=== PATIENT | male | born 1955 | race Caucasian/White ===

== ENCOUNTER → 2020-02-02 | Outpatient (CLI) | payer OTHER ==
[2020-02-02 08:37] LABS: African American GFR (CKD) >90 (>60 ml/min/1.73 sqM); Blood Urea Nitrogen 18 mg/dL (9-20); Non-African American GFR(CKD) >90 (>60 ml/min/1.73 sqM)
--- NOTE | 2020-02-02 12:45 | NM ---
EXAMINATION TYPE: NM bone scan whole body DATE OF EXAM: 02/02/2020 COMPARISON: CT same date HISTORY: Prostate cancer Delayed whole-body scanning was performed following the injection of 22.2 mCi Tc 99m MDP. Images acq uired 3 hours post injection. FINDINGS: Soft tissue uptake is normal. No area of abnormal increased or decreased uptake to suggest metastatic disease. Uptake within the feet, wrists, shoulders, costovertebral angles and spine is likely degene rative. IMPRESSION: No evident metastatic disease.
--- NOTE | 2020-02-02 13:03 | CT ---
EXAMINATION TYPE: CT abdomen pelvis w con DATE OF EXAM: 02/02/2020 COMPARISON: 01/14/2014 INDICATION: Prostate cancer DLP: 2339.70 mGycm, Automated exposure control for dose reduction was used. CONTRAST: 100 mL of Isovue 300. Study performed with Oral Contrast TECHNIQUE: Axial images were obtained from above the diaphragm to the pubic rami in the axial plane a t 5 mm thick sections. Reconstructed images are reviewed on the computer in the coronal plane. FINDINGS: Limited CT sections are obtained the lung bases. The lung bases are clear. CT ABDOMEN: There is a periumbilical hernia present. There appears be some inflammatory changes withi n the mesenteric fat. Correlate for incarcerated fat. Liver: Normal Spleen: Normal Pancreas: Normal Adrenal glands: The adrenal glands are normal. Gallbladder: Normal Kidneys: No masses are evident. No hydronephrosis is present. No cysts are present. Delayed images were obtained through the kidneys, which remain unremarkable. Aorta: Vascular calcification is within the aorta. Inferior vena cava: Normal. CT PELVIS: Fat-containing inguinal hernias may be present bilaterally larger on the left. No loops of bowel are involved. Diverticulosis without acute diverticulitis is within the which has a more solid appearance without e xpansion or adjacent inflammatory changes. This could be related to incomplete distention with fecal debris in the anterior. Underlying mass in the mid sigmoid colon however should be considered. There are loops of bowel which are incompletely distended or lack oral contrast limiting their evaluation. Appendix: Normal as visualized. Urinary bladder: Normal. Genitourinary structures: Prostate appears normal Osseous structures: No suspicious lytic or sclerotic lesions. IMPRESSIONS: 1. Mesenteric fat containing periumbilical hernia with some increased inflammatory type change withi n the fat. Correlate for incarcerated fat within the periumbilical hernia. 2. Bilateral inguinal hernias with mesenteric fat. 3. Some mass filling of the mid sigmoid colon is not excluded. Consider additional evaluation. 4. Diverticulosis without acute diverticulitis.
== END | disposition home or self-care (01) ==
LOC: RADCTMAIN 07:32
PROVIDERS: ATTEND Urology
DX: K42.9 Umbilical hernia without obstruction or gangrene (principal); K40.20 Bilateral inguinal hernia, without obstruction or gangrene, not specified as recurrent; K57.90 Diverticulosis of intestine, part unspecified, without perforation or abscess without bleeding; C61 Malignant neoplasm of prostate
CPT/HCPCS: 82565; 84520; 74177; 36415; 78306; A9503; Q9967

== ENCOUNTER → 2020-02-11 | Outpatient (CLI) | payer OTHER ==
[2020-02-11 12:01] LABS: Basophils # (A) 0.1 k/uL (0-0.2); Basophils % (A) 1 %; Eosinophils # (A) 0.2 k/uL (0-0.7); Eosinophils % (A) 4 %; HCT 50.4 % (39.0-53.0); HGB 16.3 gm/dL (13.0-17.5); Lymphocytes # (A) 1.6 k/uL (1.0-4.8); Lymphocytes % (A) 26 %; MCH 30.2 pg (25.0-35.0); MCHC 32.2 g/dL (31.0-37.0); MCV 93.6 fL (80.0-100.0); Mean Platelet Volume 7.4; Monocytes # (A) 0.4 k/uL (0-1.0); Monocytes % (A) 6 %; Neutrophils # (A) 3.9 k/uL (1.3-7.7); Neutrophils % (A) 62 %; Platelet Count 250 k/uL (150-450); RBC 5.39 m/uL (4.30-5.90); RDW 13.3 % (11.5-15.5); WBC 6.3 k/uL (3.8-10.6)
[2020-02-11 12:23] LABS: African American GFR (CKD) >90 (>60 ml/min/1.73 sqM); Anion Gap 8 mmol/L; Blood Urea Nitrogen 16 mg/dL (9-20); Carbon Dioxide 29 mmol/L (22-30); Chloride 104 mmol/L (98-107); Glucose 114 mg/dL (74-99); Non-African American GFR(CKD) >90 (>60 ml/min/1.73 sqM); Potassium 4.4 mmol/L (3.5-5.1); Sodium 141 mmol/L (137-145)
--- NOTE | 2020-02-11 14:40 | XR ---
EXAMINATION TYPE: XR chest 2V DATE OF EXAM: 02/11/2020 CLINICAL HISTORY: Cough. Preoperative. TECHNIQUE: Frontal and lateral views of the chest are obtained. COMPARISON: Chest radiograph 02/18/2015. CT abdomen pelvis 02/02/2020 and 01/14/2014. FINDINGS: The cardiomediastinal silhouette is within normal limits for size. Pulmonary vasculature i s normal. There is redemonstrated left basilar linear opacity at the lingula, similar to prior radiog raph and CT comparisons, representing pericardial fat and atelectasis. There is no new focal air spac e opacity, pleural effusion, or pneumothorax seen. No acute displaced osseous fractures. IMPRESSION: Unchanged radiographic appearance of the chest. No acute cardiopulmonary process.
== END | disposition home or self-care (01) ==
LOC: RADXRMAIN 10:53
PROVIDERS: ATTEND Urology
DX: Z01.818 Encounter for other preprocedural examination (principal); C61 Malignant neoplasm of prostate; R58 Hemorrhage, not elsewhere classified; I10 Essential (primary) hypertension; R05 Cough
CPT/HCPCS: 36415; 71046; 80048; 85025; 93005

== ENCOUNTER 2020-02-18 05:38 | Day surgery (SDC) | payer OTHER ==
--- NOTE | 2020-02-15 07:43 | P.HPIHPCON ---
History of Present Illness H&P Date: 02/18/20 Chief Complaint: prostate cancer Mr Beverly is a 64yo male with hx of valentin 8 (4+4) prostate cancer. We discussed with him the options including surgery and radiation therapy. We discussed the risk and benefits with him of each approach. I discussed with surgery the risk of urinary incontinence and erectile dysfunction, I also discussed with him risk of injury to nearby organs including bowels and rectum and blood vessels. Of note he has hx of ventral hernia, I did discuss with him he is at an increased risk of complication including bowel injury. I also discussed the risk from anesthesia with him. Which included but not limited to blood clots, heart attack, stroke and even . Discuss with him potential of needing additional treatment for his prostate cancer. He understood all the risk and agreed to proceed with a robotic-assisted radical prostatectomy and pelvic lymph node dissection Consent for Procedure: I have explained the operation/procedure to the patient, including the risks, benefits, side effects, alternative therapies (including not receiving the proposed treatment or service), the likelihood of the patient achieving his/her goals, and potential recuperation problems for the procedure/sedation/analgesia, as well as any blood products, if indicated. I also explained to the patient the risks, benefits and side effects of the alternatives, as well as the risks related to not receiving the proposed procedure, care, treatment, or services. - Constitutional Constitutional: Denies chills, Denies fever - Cardiovascular Cardiovascular: Denies chest pain, Denies shortness of breath - Respiratory Respiratory: Denies cough, Denies 7 - Gastrointestinal Gastrointestinal: Denies abdominal pain, Denies diarrhea, Denies nausea, Denies vomiting - Genitourinary (Male) Genitourinary: Denies dysuria, Denies hematuria - Neurological Neurological: Denies numbness, Denies weakness Past Medical History Past Medical History: Pneumonia Additional Past Medical History / Comment(s): DIVERTICULOSIS History of Any Multi-Drug Resistant Organisms: None Reported Past Surgical History: Hernia Repair Past Psychological History: No Psychological Hx Reported Past Alcohol Use History: None Reported Past Drug Use History: None Reported Medications and Allergies Home Medications Medication Instructions Recorded Confirmed Type Albuterol Inhaler (Mhu) [Ventolin 1 - 2 puff INHALATION Q6HR PRN #1 02/18/15 Rx Hfa Inhaler (Mhu)] inhaler Azithromycin [Zithromax] 0 mg PO DIRECTED #6 tab 02/18/15 Rx Ibuprofen [Motrin] 600 mg PO Q8HR PRN #15 tab 02/18/15 Rx predniSONE 50 mg PO DAILY #4 tab 02/18/15 Rx Allergies Allergy/AdvReac Type Severity Reaction Status Date / Time No Known Allergies Allergy Verified 02/18/15 12:17 Surgical - Exam - General well developed, well nourished, no distress - Eyes PERRL, normal ocular movement - Respiratory normal expansion, normal respiratory effort - Abdomen Abdomen: soft, non tender - Psychiatric oriented to time, oriented to person, oriented to place Assessment and Plan Assessment: 64 yo male with hx of valentin 8 prostae cancer -OR for robotic prostatectomy and pelvic lymph node dissection
[2020-02-17 10:18] VITALS: BMI 35.9
[2020-02-18] MEDS ORDERED: LACTATED RINGERS 1,000 ML IV SCH (05:53)
[2020-02-18] MEDS ORDERED: ONDANSETRON 4 MG/2 ML VIAL IVP ONE (05:53)
[2020-02-18] MEDS ORDERED: DEXAMETHASONE SOD PHOSPHATE 10 MG/ML 1 ML VIAL IV ONE (05:53)
[2020-02-18] MEDS ORDERED: HEPARIN SODIUM,PORCINE 5,000 UNIT/ML 1 ML VIAL SQ ONE (06:00)
[2020-02-18] MEDS ORDERED: LIDOCAINE 1% (10MG/ML) FOR IV START INTRADERMA ONE (06:35)
[2020-02-18] MEDS ORDERED: MIDAZOLAM 2 MG/2 ML VIAL IV ONE (06:55)
[2020-02-18 07:01] LABS: INR 0.9 (<1.2); Prothrombin Time 9.6 sec (9.0-12.0)
[2020-02-18] MEDS ORDERED: fentaNYL (PF) 50 MCG/ML 2 ML AMP ONE (07:28)
[2020-02-18] MEDS ORDERED: NEOSTIGMINE 1 MG/ML 10 ML VIAL ONE (07:28)
[2020-02-18] MEDS ORDERED: SUCCINYLCHOLINE CHLORIDE 100 MG/5 ML SYR IV ONE (07:28)
[2020-02-18] MEDS ORDERED: PHENYLEPHRINE-0.9% NACL SYG 1 MG/10 ML SYRINGE ONE (07:28)
[2020-02-18] MEDS ORDERED: PROPOFOL 10 MG/ML 20 ML VIAL IV ONE (07:28)
[2020-02-18] MEDS ORDERED: LIDOCAINE 1% INJ 10MG/ML (20 ML MDV) ONE (07:28)
[2020-02-18] MEDS ORDERED: ROCURONIUM 10 MG/ML (10 ML VIAL) IV ONE (07:28)
[2020-02-18] MEDS ORDERED: GLYCOPYRROLATE 0.2 MG/ML 2 ML VIAL ONE (07:28)
[2020-02-18] MEDS ORDERED: BUPIVACAINE (PF) 0.25% 30 ML VIAL SQ ONE ×2 (08:43→09:54)
--- NOTE | 2020-02-18 10:15 | P.OP ---
Date of Procedure: 02/18/20 Preoperative Diagnosis: prostate cancer Postoperative Diagnosis: prostate cancer, Procedure(s) Performed: Diagnostic laproscopy and lysis of adhesions (>45 minutes ) Implants: none Anesthesia: BOBA Surgeon: Ranjith Borrero Bulk Sealer #1: Luis Barrera Estimated Blood Loss (ml): 25 Condition: stable Disposition: PACU Indications for Procedure: Mr Beverly is a 64yo male with hx of valentin 8 (4+4) prostate cancer. We discussed with him the options including surgery and radiation therapy. We discussed the risk and benefits with him of each approach. I discussed with surgery the risk of urinary incontinence and erectile dysfunction, I also d iscussed with him risk of injury to nearby organs including bowels and rectum and blood vessels. Of note he has hx of ventral hernia, I did discuss with him he is at an increased risk of complication including bowel injury. I also discussed the risk from anesthesia with him. Which included but not limited to blood clots, heart attack, stroke and even . Discuss with him potential of needing additional treatment for his prostate cancer. He understood all the risk and agreed to proceed with a robotic-assisted radical prostatectomy and pelvic lymph node dissection Operative Findings: patient sigmoid was densely adhered to the bladder and to the right pelvic sidewall. Additionally the rectum and the sigmoid was completely adhered to the pouch of Hemal, there wasn't a clear surgical plane between the sigmoid/rectum and bladder. Using monopolar scissors lysis of adhesions was performed sharply in order to create the space between the rectum/sigmoid and the bladder. Of note patient had extensive diverticuli. Initially we were able to establish a plane between the left side of the pouch of Hemal, but on the right side the sigmoid was fiberotically adhered to the obturator area along the right side of the pelvis. This could this could represent a diverticular abscess,, possibly a mass or a metastatic pelvic lymph node. Given that no plane could be created, the risk of complications which include colostomy/bleeding was significant, . This was discussed with the family and all the options were discussed with them. I discussed with him given that the plane could not be clearly defined he's had a high risk of a colostomy possibly bleeding, and the risks outweighed the benefit of proceeding. Description of Procedure: Patient was brought to the operating room, general anesthesia was induced. He was prepped and draped in sterile fashion placed in the supine position. A transverse incision was made supraumbilically, subcutaneous tissue was dissected off using electrocautery. Incision was deepened to the fascia, at this time the fascia was entered sharply. Some omentum was adhered to the peritoneum which was freed up with finger dissection. At this time a GelPoint was placed and insufflation was obtained. This time the robotic camera was placed through the gel point a diagnostic laparoscopy was performed which showed adhesions superior to the gel point. An 8 mm robotic port was placed to the right of the gel point additional 12 mm ambulance assistant was placed. At this time 2 additional robotic arms were placed along the left side. Lysis of adhesion was performed to allow the placement of a 5 mm right paramedian 5mm ambulance assistant port. At this time the robot was docked. Of note the patient had poor tolerance of the pneumoperitoneum and the Trendelenburg position, the insufflation was decreased in order to maintain adequate ventilation. At this time the robot was docked. Patient had adhesion along the left upper quadrant was taken down with the robot. This time attention was carried to the cul-de-sac of note the patient sigmoid was densely adhered to the bladder and to the right pelvic sidewall. Additionally the rectum and the sigmoid was completely adhered to the pouch of Hemal, there wasn't a clear surgical plane between the sigmoid/rectum and bladder. Using monopolar scissors lysis of adhesions was performed sharply in order to create the space between the rectum/sigmoid in the bladder. Of note patient had extensive diverticuli. Initially we were able to establish a plane between the left side of the pouch of Hemal, but on the right side the sigmoid was fiberotically adhered to the obturator area along the right side of the pelvis. This could this could represent a diverticular abscess,, possibly a mass or a metastatic pelvic lymph node. Given that no plane could be created, the risk of complications which include colostomy/bleeding was significant. Thi s was discussed with the family and all the options were discussed with them. I discussed with him given that the plane could not be clearly defined he's had a high risk of a colostomy possibly bleeding, and the risks outweighed the benefit of proceeding. The family agreed to abort the procedure, I also discussed with them that he is having poor tolerance of Trendelenburg bed position and pneumo peritoneum. They understood all that and the agreed with aborting the procedure. At this time the robot was undocked the fascial incision was closed with #1 PDS in running fashion, the skin was closed with 4-0 Monocryl, skin glue was a spinal was placed on the incisions. The patient was awakened from anesthesia and he was taken PACU in stable condition
[2020-02-18 10:18] VITALS: TEMP 97.2
[2020-02-18] MEDS: HYDROmorphone 0.5 MG/0.5 ML SYRINGE IVP PRN ×2 (10:24→10:36)
[2020-02-18] MEDS ORDERED: KETOROLAC 15 MG/ML 1 ML VIAL IVP ONE (10:33)
[2020-02-18 10:34] VITALS: RESP 16
[2020-02-18 11:25] VITALS: BP 110/75; PULSE 95
== END 2020-02-18 11:43 | disposition home or self-care (01) ==
LOC: OR 05:38
PROVIDERS: ATTEND Urology
DX: K66.0 Peritoneal adhesions (postprocedural) (postinfection) (principal); C61 Malignant neoplasm of prostate; K57.30 Diverticulosis of large intestine without perforation or abscess without bleeding; I10 Essential (primary) hypertension; Z79.52 Long term (current) use of systemic steroids; Z79.1 Long term (current) use of non-steroidal anti-inflammatories (NSAID); Z79.899 Other long term (current) drug therapy; Z87.01 Personal history of pneumonia (recurrent); Z98.890 Other specified postprocedural states
CPT/HCPCS: 86900; 86901; 85610; 86850; 44180; J2250; J1644; J1100; J2710; J0690; J2405; J2001; J3010; J1885; J2370; J0330; J2704; J1170

== ENCOUNTER → 2021-01-30 | Outpatient (CLI) | payer OTHER | END | disposition home or self-care (01) | LOC: LABWHC1 10:20 | PROVIDERS: ATTEND Radiology Radiation Oncology | DX: C61 Malignant neoplasm of prostate (principal); Z87.891 Personal history of nicotine dependence | CPT/HCPCS: 36415; 84153 ==

== ENCOUNTER → 2021-08-07 | Outpatient (CLI) | payer OTHER | END | disposition home or self-care (01) | LOC: LABWHC1 13:32 | PROVIDERS: ATTEND Radiology Radiation Oncology | DX: C61 Malignant neoplasm of prostate (principal); Z92.3 Personal history of irradiation; Z87.891 Personal history of nicotine dependence | CPT/HCPCS: 36415; 84153 ==